=== PATIENT | female | born 1995 | race Caucasian/White ===

== ENCOUNTER 2017-12-10 21:29 | Emergency (ER) | payer OTHER ==
[2017-12-11 00:55] LABS: ADD MAN DIFF? NO
[2017-12-11 01:06] LABS: WHITE BLOOD COUNT 11.4 10^3/ul (4.8-10.8)
[2017-12-11 01:06] LABS: BASOPHILS % 0.4 % (0.0-2.0); EOSINOPHILS # 0.1 10^3/ul (0.0-0.5); HEMATOCRIT 37.2 % (37.0-47.0); HEMOGLOBIN 12.7 g/dl (12.0-16.0); LYMPHOCYTES # 2.2 10^3/ul (0.8-2.9); LYMPHOCYTES % 18.9 % (15.0-51.0); MEAN CORPUSCULAR HEMOGLOBIN 30.3 pg (29.0-33.0); MEAN CORPUSCULAR HGB CONC 34.1 g/dl (32.0-37.0); MEAN CORPUSCULAR VOLUME 88.8 fl (82.0-101.0); MEAN PLATELET VOLUME 12.2 fl (7.4-10.4); MONOCYTE # 0.9 10^3/ul (0.3-0.9); MONOCYTES % 7.7 % (0.0-11.0); NEUTROPHIL # 8.2 10^3/ul (1.6-7.5); NEUTROPHILS % 71.6 % (39.0-77.0); PLATELET COUNT 252 10^3/UL (140-415); RED BLOOD COUNT 4.19 10^6/ul (4.20-5.40); RED CELL DISTRIBUTION WIDTH 12.2 % (11.5-14.5)
[2017-12-11 01:22] LABS: ADD UMIC YES; UR ASCORBIC ACID NEGATIVE (NEGATIVE); UR BILIRUBIN (Dip) NEGATIVE (NEGATIVE); UR BLOOD (Dip) 2+ mg/dL (NEGATIVE); UR CLARITY CLEAR (CLEAR); UR COLOR STRAW (YELLOW); UR GLUCOSE (Dip) NEGATIVE (NEGATIVE); UR KETONES (Dip) NEGATIVE (NEGATIVE); UR LEUKOCYTE ESTERASE (Dip) NEGATIVE Leu/ul (NEGATIVE); UR NITRITE (Dip) NEGATIVE (NEGATIVE); UR RBC 8 /HPF (0-5); UR TOTAL PROTEIN (Dip) NEGATIVE (NEGATIVE); UR UROBILINOGEN (Dip) NEGATIVE (NEGATIVE); UR WBC 0 /HPF (0-5)
== END 2017-12-11 02:44 | disposition home or self-care (01) ==
LOC: FTE 21:29
DX: O20.9 Hemorrhage in early pregnancy, unspecified (principal); R10.2 Pelvic and perineal pain; Z3A.12 12 weeks gestation of pregnancy
CPT/HCPCS: 36415; 76801; 81001; 84702; 85025; 86900; 86901; 99284-25

== ENCOUNTER 2018-06-08 12:39 | Outpatient (CLI) | payer OTHER ==
[2018-06-08 14:05] LABS: RUPTURE FETAL MEMBRANES NEGATIVE (NEGATIVE)
== END 2018-06-08 14:26 | disposition home or self-care (01) ==
LOC: OBT 12:39 → L-D 12:39 → OBT 14:26
DX: O42.913 Preterm premature rupture of membranes, unspecified as to length of time between rupture and onset of labor, third trimester (principal); Z3A.37 37 weeks gestation of pregnancy
CPT/HCPCS: 76818; 84112

== ENCOUNTER 2018-06-10 07:36 | Inpatient (IN) | payer OTHER ==
[2018-06-10 08:57] LABS: RUPTURE FETAL MEMBRANES POSITIVE (NEGATIVE)
[2018-06-10] MEDS ORDERED: MISOPROSTOL 200 MCG TAB PR ×2 (12:30→20:00)
[2018-06-10] MEDS ORDERED: METHYLERGONOVINE 0.2 MG INJ IM ×2 (12:30→20:00)
[2018-06-10] MEDS ORDERED: BUTORPHANOL 1 MG INJ IV (12:30)
[2018-06-10] MEDS ORDERED: LIDOCAINE 1% (MPF) 30 ML INJ INJ (12:30)
[2018-06-10] MEDS ORDERED: CARBOPROST 250 MCG INJ IM ×2 (12:30→20:00)
[2018-06-10] MEDS ORDERED: OXYTOCIN 30 UNITS/LR 500 ML IV ×2 (12:30→20:00)
[2018-06-10] MEDS: DINOPROSTONE 10 MG VAG SUPP VAG (12:30)
[2018-06-10] MEDS: LACTATED RINGER'S 1,000 ML IV* ×2 (12:51→18:13)
[2018-06-10] MEDS: AMPICILLIN 2 GM/NS (PMX) 100 ML IV (13:03)
[2018-06-10 13:04] LABS: ADD MAN DIFF? NO
[2018-06-10 13:06] LABS: WHITE BLOOD COUNT 9.1 10^3/ul (4.8-10.8)
[2018-06-10 13:06] LABS: BASOPHILS % 0.4 % (0.0-2.0); EOSINOPHILS % 0.4 % (0.0-7.0); HEMATOCRIT 35.7 % (37.0-47.0); HEMOGLOBIN 11.9 g/dl (12.0-16.0); LYMPHOCYTES # 1.4 10^3/ul (0.8-2.9); LYMPHOCYTES % 15.5 % (15.0-51.0); MEAN CORPUSCULAR HEMOGLOBIN 30.2 pg (29.0-33.0); MEAN CORPUSCULAR HGB CONC 33.3 g/dl (32.0-37.0); MEAN CORPUSCULAR VOLUME 90.6 fl (82.0-101.0); MEAN PLATELET VOLUME 12.3 fl (7.4-10.4); MONOCYTE # 0.6 10^3/ul (0.3-0.9); MONOCYTES % 6.1 % (0.0-11.0); NEUTROPHIL # 6.9 10^3/ul (1.6-7.5); NEUTROPHILS % 76.3 % (39.0-77.0); PLATELET COUNT 192 10^3/UL (140-415); RED BLOOD COUNT 3.94 10^6/ul (4.20-5.40); RED CELL DISTRIBUTION WIDTH 13.2 % (11.5-14.5)
[2018-06-10 13:25] LABS: INR 0.93; PROTIME 12.5 Sec (11.9-14.9)
[2018-06-10 13:26] LABS: PARTIAL THROMBOPLASTIN TIME 27.9 Sec (25.0-35.0)
[2018-06-10 15:12] LABS: RAPID PLASMA REAGIN NONREACTIVE (NR)
[2018-06-10] MEDS: OXYTOCIN 30 UNITS/LR 500 ML IV ×3 (16:03→18:47)
[2018-06-10] MEDS: AMPICILLIN 1 GM/NS (PMX) 50 ML IV ×2 (16:26→16:30)
[2018-06-10] MEDS: BUTORPHANOL 2 MG INJ IV ×2 (17:01→17:20)
[2018-06-10] MEDS: MINERAL OIL LIGHT 10 ML VIAL TOP ×2 (18:30→18:31)
[2018-06-10] MEDS ORDERED: ZOLPIDEM 5 MG TAB PO (20:00)
[2018-06-10] MEDS ORDERED: LACTATED RINGER'S 1,000 ML IV* (20:00)
[2018-06-10] MEDS ORDERED: DIBUCAINE 1% 30 GM OINT PR (20:00)
[2018-06-10] MEDS: HYDROCODONE/APAP (5/325) TAB PO (20:28)
[2018-06-10] MEDS: WITCH HAZEL/GLYCERIN PAD PR (23:37)
[2018-06-10] MEDS: MAGNESIUM HYDROXIDE 30ML CUP PO (23:37)
[2018-06-10] MEDS: BENZOCAINE 20% 56 ML SPRAY TOP (23:37)
[2018-06-10] MEDS: SENNA/DOCUSATE NA (8.6MG/50MG) TAB PO (23:38)
[2018-06-10] MEDS: IBUPROFEN 600 MG TAB PO (23:38)
[2018-06-10] MEDS: CEPHALEXIN 500 MG CAP PO (23:38)
[2018-06-10] MEDS: LANOLIN 7 GM TUBE TOP (23:38)
[2018-06-11] MEDS: IBUPROFEN 600 MG TAB PO ×3 (05:34→17:18)
[2018-06-11] MEDS: CEPHALEXIN 500 MG CAP PO ×3 (05:38→17:18)
[2018-06-11] MEDS: MAGNESIUM HYDROXIDE 30ML CUP PO ×2 (08:37→21:00)
[2018-06-11] MEDS: SENNA/DOCUSATE NA (8.6MG/50MG) TAB PO ×2 (08:37→21:00)
[2018-06-11 08:57] LABS: ADD MAN DIFF? NO
[2018-06-11 09:00] LABS: BASOPHILS % 0.2 % (0.0-2.0); EOSINOPHILS # 0.1 10^3/ul (0.0-0.5); EOSINOPHILS % 0.5 % (0.0-7.0); HEMATOCRIT 33.6 % (37.0-47.0); LYMPHOCYTES # 1.4 10^3/ul (0.8-2.9); LYMPHOCYTES % 13.1 % (15.0-51.0); MEAN CORPUSCULAR HEMOGLOBIN 29.9 pg (29.0-33.0); MEAN CORPUSCULAR HGB CONC 32.7 g/dl (32.0-37.0); MEAN CORPUSCULAR VOLUME 91.3 fl (82.0-101.0); MEAN PLATELET VOLUME 12.2 fl (7.4-10.4); MONOCYTE # 0.7 10^3/ul (0.3-0.9); MONOCYTES % 6.1 % (0.0-11.0); NEUTROPHIL # 8.6 10^3/ul (1.6-7.5); NEUTROPHILS % 79.3 % (39.0-77.0); PLATELET COUNT 170 10^3/UL (140-415); RED BLOOD COUNT 3.68 10^6/ul (4.20-5.40); RED CELL DISTRIBUTION WIDTH 13.4 % (11.5-14.5)
[2018-06-11 09:00] LABS: WHITE BLOOD COUNT 10.9 10^3/ul (4.8-10.8)
[2018-06-11] MEDS: HYDROCODONE/APAP (5/325) TAB PO (20:23)
[2018-06-12] MEDS: CEPHALEXIN 500 MG CAP PO ×4 (00:22→17:51)
[2018-06-12] MEDS: IBUPROFEN 600 MG TAB PO ×4 (00:22→17:51)
[2018-06-12] MEDS: MEASLES,MUMPS,RUBELLA VACCINE INJ SC* (08:33)
[2018-06-12] MEDS: DIPHTH/TET/ACEL PERTUSS (ADULT) 0.5 ML VIAL IM* (08:33)
[2018-06-12] MEDS: MAGNESIUM HYDROXIDE 30ML CUP PO (08:33)
[2018-06-12] MEDS: SENNA/DOCUSATE NA (8.6MG/50MG) TAB PO (08:33)
[2018-06-12] MEDS: VARICELLA VACCINE LIVE/PF 1,350 UNIT/0.5 ML ML SC* (08:34)
== END 2018-06-12 19:23 | disposition home or self-care (01) | DRG 775 ==
LOC: OBT 07:36 → L-D 07:36 → OBT 12:12 → L-D 12:26 → PP1 20:35
PROVIDERS: Obstetrics & Gynecology
PROC: 10E0XZZ Delivery of Products of Conception, External Approach (ICD-10-PCS; principal; 2018-06-10)
PROC: 0UQMXZZ Repair Vulva, External Approach (ICD-10-PCS; 2018-06-10)
PROC: 3E033VJ Introduction of Other Hormone into Peripheral Vein, Percutaneous Approach (ICD-10-PCS; 2018-06-10)
DX: O71.4 Obstetric high vaginal laceration alone (principal); Z3A.38 38 weeks gestation of pregnancy; Z37.0 Single live birth
CPT/HCPCS: 76818; 84112; 85025; 85610; 85730; 86592; 86850; 86900; 86901